=== PATIENT | male | born 1940 | race Caucasian/White ===

== ENCOUNTER 2019-01-13 08:42 | Emergency (ER) | payer OTHER ==
[~2019-01-13] VITALS: Ht 177.8 cm; Wt 97.7 kg
[~2019-01-13 08:42] MED LIST: B12INJ IM; BAYER CHEWABLE81 MG; CARDIZEM CD180 MG; CIPRO500 MG; COUMADIN 5 MG TA5 M1; COUMADIN 5 MG TA5 M1 PO; FLECAINIDE ACE100 MG; FLOMAX0.4 MG; HYDROCODON-ACE1 EAC7; LISINOPRIL5 MG PO; ZETIA10 MG PO
[2019-01-13] MEDS ORDERED: FLECAINIDE ACET50 M1 PO (08:51)
[2019-01-13] MEDS ORDERED: PRAVACHOL40 MG PO (08:52)
[2019-01-13] MEDS ORDERED: FISH OIL 1,001000 M2 PO (08:52)
[2019-01-13 09:16] LABS: ABSOLUTE NEUTROPHILS 3.4 thou/uL (1.4-8.2); BASOPHILS 0.9 % (0.0-2.0); EOSINOPHILS 6.4 % (0.0-3.0); HEMATOCRIT 41.9 % (42.0-52.0); HEMOGLOBIN 13.7 gm/dL (14.0-18.0); MCH 31.2 pg (26.0-34.0); MCHC 32.6 g/dL (28.0-37.0); MCV 95.5 fL (80.0-100.0); MONOCYTES 10.4 % (1.0-8.0); PLATELET COUNT 163 thou/uL (150-400); POLYS 58.3 % (36.0-66.0); RBC 4.39 mil/uL (4.50-6.00); RDW 14.2 % (10.5-14.5); WBC 5.8 thou/uL (4.0-11.0)
[2019-01-13 09:24] LABS: ANION GAP 9 mmol/L (7-16); BUN 18 mg/dL (7-18); CALCIUM 9.9 mg/dL (8.5-10.1); CHLORIDE 106 mmol/L (98-107); CO2 26 mmol/L (21-32); CREATININE 1.2 mg/dL (0.7-1.3); GLUCOSE 94 mg/dL (74-106); POTASSIUM 4.5 mmol/L (3.5-5.1); SODIUM 141 mmol/L (136-145)
[2019-01-13 09:30] LABS: PROTIME 21.1 Seconds (9.3-11.4)
[2019-01-13 09:33] LABS: MAGNESIUM 2.1 mg/dL (1.8-2.4); TROPONIN-I <0.06 ng/mL (<0.06)
[2019-01-13 11:18] VITALS: BP 115/68
--- NOTE | 2019-01-15 13:26 | EKG ---
[address] [place] [employer] [address] ELECTROCARDIOGRAM REPORT Name: KOMAL ARRIAGA SAMARA Room #: DEP Zain#: [id number] Admission: 01/13/19 Attend Phys: Discharge: 01/13/19 Date of : 36 Report #: [id number] THIS REPORT FOR: //name// [facility] ED Test Date: 2019-01-13 Test Time: 09:45:02 Pat Name: KOMAL ARRIAGA Department: Room: Gender: Director Advertising: : 1940 Requested By: Bear Joyce Order Number: [id number] MD: Estuardo Soto Measurements Intervals [place] Rate: 116 P: [place]: QRS: 68 QRSD: 192 T: -41 QT: 418 QTc: 581 Interpretive Statements Atrial fibrillation Right bundle branch block Electronically Signed On 01-15-2019 13:26:35 CDT by Estuardo Soto [email or web address] <ELECTRONICALLY SIGNED> By: Estuardo Soto MD 01/15/19 1326 0945 0945 Estuardo Soto MD /EPI
--- NOTE | 2019-01-15 13:26 | EKG ---
[place] [address] [facility] [place] [address] ELECTROCARDIOGRAM REPORT Name: KOMAL ARRIAGA [facility]: [id number] Admission: 01/13/19 Attend Phys: Discharge: 01/13/19 Date of : 36 Report #: [id number] THIS REPORT FOR: //name// [facility] ED Test Date: 2019-01-13 Test Time: 08:46:33 Pat Name: KOMAL ARRIAGA Department: Room: Gender: Male Insurance Claims Assistant: : 1940 Requested By: Bear Joyce Order Number: [id number] MD: Estuardo Soto Measurements Intervals [place] Rate: 123 P: [place]: QRS: 92 QRSD: 196 T: -56 QT: 443 QTc: 634 Interpretive Statements Atrial flutter with predominant 2:1 AV block RBBB and LPFB Compared to ECG 11/16/2015 11:32:43 Electronically Signed On 01-15-2019 13:25:59 CDT by Estuardo Soto [email or web address] <ELECTRONICALLY SIGNED> By: Estuardo Soto MD 01/15/19 1325 0846 5 Estuardo Soto MD /KATHERYN
--- NOTE | 2019-01-15 13:27 | EKG ---
[address] [place] [address] ELECTROCARDIOGRAM REPORT Name: KOMAL ARRIAGA Room #: DEP Zain#: [id number] Admission: 01/13/19 Attend Phys: Discharge: 01/13/19 Date of : 36 Report #: [id number] THIS REPORT FOR: //name// [facility] ED Test Date: 2019-01-13 Test Time: 10:13:27 Pat Name: KOMAL ARRIAGA Department: Room: Gender: Personnel Training Officer: : 1940 Requested By: Bear Joyce Order Number: [id number] MD: Estuardo Soto Measurements Intervals [place] Rate: 79 P: [place]: QRS: 33 QRSD: 154 T: 6 QT: 465 QTc: 534 Interpretive Statements Atrial flutter Right bundle branch block Compared to ECG 11/16/2015 11:32:43 Atrial fibrillation no longer present Electronically Signed On 01-15-2019 13:26:46 CDT by Estuardo Soto [email or web address] <ELECTRONICALLY SIGNED> By: Estuardo Soto MD 01/15/19 1326 1013 1013 Estuardo Soto MD /KATHERYN
== END 2019-01-13 11:29 | disposition home or self-care (01) ==
LOC: ER 08:42
PROVIDERS: Emergency Medicine
DX: I48.91 Unspecified atrial fibrillation (principal); Z95.2 Presence of prosthetic heart valve; Z85.46 Personal history of malignant neoplasm of prostate; Z90.79 Acquired absence of other genital organ(s); Z88.8 Allergy status to other drugs, medicaments and biological substances

== ENCOUNTER 2019-01-18 08:04 | Inpatient (IN) | payer OTHER ==
[2019-01-18] VITALS (8 sets, daily range): BP systolic 68–114; BP diastolic 39–69
[~2019-01-18] VITALS: Ht 188 cm; Wt 99.5 kg
--- NOTE | ~2019-01-18 | H ---
[facility] [place] [address] HISTORY AND PHYSICAL Name: KOMAL ARRIAGA Room #: 208-P ADM IN M.R.#: [id number] Admission: 01/18/19 Attend Phys: Jose Valverde MD Discharge: Date of : 36 Report #: [id number] THIS REPORT FOR: //name// CC: Jose Valverde DATE OF SERVICE: 01/18/2019 CHIEF COMPLAINT: Chest tightness, rapid atrial fibrillation. HISTORY OF PRESENT ILLNESS: The patient awoke about 6:00 this morning with a sensation of chest pressure in his upper mid chest. He rested carefully, because many times that sensation will resolve on its own relatively soon. It did not, so he presented to the hospital where he was found to be in rapid atrial fibrillation with a wide complex tachycardia, rate of 168, with a blood pressure of 68/39. He was treated in the Emergency Room Department and stabilized. Five days ago, he had dizziness and mild central chest pain while walking in the gym. He came to the Emergency Room with atrial fib and rapid ventricular response of 123. As treatment progressed, the rate dropped to 79 and the rhythm was atrial flutter. He was given metoprolol and his symptoms and heart rate was within the normal range, and he was asymptomatic and was discharged. He states he was given a single metoprolol tablet and not a prescription to continue at home. He has a history of paroxysmal atrial fibrillation, managed on flecainide 50 mg twice daily with warfarin. Sick sinus syndrome, sinus bradycardia, chronotropic incompetence. A pacemaker had been recommended, but the preliminary arrangements/insurance approvals had not been completed at the time of his event this morning. Admission is indicated with urgent placement of a pacemaker and followed by medical management of his rapid ventricular response. A stress echocardiogram 12/06/2018 showed a nonischemic EKG tracing, left ventricular ejection fraction was 55-60%. OTHER CARDIAC HISTORY: He had a cardiac catheterization in 1993, followed by another cardiac catheterization 01/04/2008 and both procedures did not show lesions worthy of intervention. Right ankle was broken in 1981. 05/10/2002, Dr. Issa performed a prostatectomy for prostate cancer. He has an iron deficiency anemia for which he takes iron tablets. Serial colonoscopies and EGDs have been negative. He has a documented low vitamin B12 level and until a year ago took B12 injections, but has switched to oral B12 tablets with adequate laboratory response. [address] [address] HISTORY AND PHYSICAL Name: KOMAL ARRIAGA Room #: 208-P [facility] IN [facility]#: [id number] Admission: 01/18/19 Attend Phys: Jose Valverde MD Discharge: Date of : 36 Report #: [id number] Left hip arthroplasty was elective 12/24/2016. He has treated hyperlipidemia and an elevated LPa. CURRENT MEDICATIONS: Warfarin dosage adjusted by Dr. Wade, 81 mg aspirin 2 tablets in the morning, flecainide 50 mg twice daily, ezetimibe 5 mg daily, pravastatin 40 mg daily, 65 mg iron daily, vitamin D 5000 units daily, fish oil, flax oil, 500 mg of slow niacin daily, acetaminophen 500 mg daily, B12 tablets daily and turmeric daily. ALLERGIES: ZOLPIDEM caused confusion. REVIEW OF SYSTEMS: HEENT: Unremarkable, lungs are clear, there is no chest discomfort, no shortness of breath with exertion unless he is having an episode of rapid atrial fib. Abdomen, and musculoskeletal reviews are negative. A small lump on his right lower leg was felt to be a superficial thrombophlebitis and has resolved. FAMILY HISTORY: Heart disease. OBJECTIVE: GENERAL: Shows an 78-year-old male, appearing to feel well in his hospital bed. HEENT: Unremarkable. The oropharynx is normal. NECK: Negative. There are no carotid bruits present. LUNGS: Clear. CARDIOVASCULAR: S1 and S2 are normal. The rhythm is irregularly irregular, and the heart rate is under 100. There are no murmurs or extra sounds. ABDOMEN: Mildly obese, soft and nontender. EXTREMITIES: There is no significant pedal edema present. NEUROLOGIC: Screening neurological examination is intact. ASSESSMENT: 1. Long history of paroxysmal atrial fibrillation with recent "breakthrough" and 2 episodes of rapid ventricular response, the second one from today requiring urgent hospitalization to control. A pacemaker is indicated. 2. Hyperlipidemia, treated with LPa that is also elevated. 3. Two cardiac catheterizations had failed to reveal coronary lesions worthy of intervention. 4. Chronic microhematuria. 5. Chronic iron deficiency anemia -- treated. 6. Low vitamin B12 -- adequately treated. 7. Intentional 20-pound weight loss over this summer as a result of following [employer] along with his . 8. Superficial thrombophlebitis of the right calf -- resolved on exam today. [facility] [address] [place] [address] HISTORY AND PHYSICAL Name: KOMAL ARRIAGA Room #: 208-P ADM IN M.R.#: [id number] Admission: 01/18/19 Attend Phys: Jose Valverde MD Discharge: Date of : 38 Report #: [id number] PLAN: The patient is admitted, his warfarin is being reversed by the EP service. He will undergo placement of a pacemaker in the morning. By: [id number] Jose Valverde MD /nt
[~2019-01-18 08:04] MED LIST changes: +FISH OIL 1,001000 M2 PO; +FLECAINIDE ACET50 M1 PO; +PRAVACHOL40 MG PO
[2019-01-18 08:20] LABS: ABSOLUTE NEUTROPHILS 3.7 thou/uL (1.4-8.2); BASOPHILS 0.6 % (0.0-2.0); EOSINOPHILS 7.7 % (0.0-3.0); HEMATOCRIT 45.6 % (42.0-52.0); LYMPHOCYTES 25.5 % (24.0-44.0); MCH 31.6 pg (26.0-34.0); MCHC 32.9 g/dL (28.0-37.0); MCV 96.2 fL (80.0-100.0); MONOCYTES 7.1 % (1.0-8.0); PLATELET COUNT 170 thou/uL (150-400); POLYS 59.1 % (36.0-66.0); RBC 4.74 mil/uL (4.50-6.00); RDW 14.3 % (10.5-14.5); WBC 6.3 thou/uL (4.0-11.0)
[2019-01-18 08:27] LABS: ANION GAP 12 mmol/L (7-16); BUN 20 mg/dL (7-18); CALCIUM 9.5 mg/dL (8.5-10.1); CHLORIDE 105 mmol/L (98-107); CO2 25 mmol/L (21-32); CREATININE 1.3 mg/dL (0.7-1.3); GLUCOSE 127 mg/dL (74-106); POTASSIUM 4.1 mmol/L (3.5-5.1); SODIUM 142 mmol/L (136-145)
[2019-01-18 08:36] LABS: TROPONIN-I <0.06 ng/mL (<0.06)
[2019-01-18 09:26] LABS: APTT 35.2 Seconds (24.5-32.8); PROTIME 21.2 Seconds (9.3-11.4)
[2019-01-18 15:16] LABS: INR 2.2; PROTIME 22.8 Seconds (9.3-11.4)
[2019-01-19 01:00] VITALS: BP 89/56
--- NOTE | 2019-01-19 02:55 | NUR ---
ASSESSMENT: PT REMAIN ALERT AND ORIENT TIMES FOUR. UP TO BR WITH STEADY GAIT, SBA. DENIES PAIN, SOB, CP AND NAUSEA. BLOOD PRESSURE LOW, NO CARDIZEM BOLUS WAS GIVEN. CARDIZEM GTT INITATED AT 5MG/5ML PER HOUR. GTT DC'D AT 0151 FOR SBP IN THE 80'S. SR, AFIB, AFLUTTER AND SA PER MONITOR. PT NPO AT [place] FOR PACEMAKER PLACEMENT IN THE AM. SLOW PROGRESS TOWARDS DC GOALS,. WILL CONTINUE TO MONITOR.
[2019-01-19 05:09] VITALS: BP 99/59
[2019-01-19 05:27] LABS: INR 1.7; PROTIME 17.2 Seconds (9.3-11.4)
[2019-01-19 05:28] LABS: CALCIUM 8.8 mg/dL (8.5-10.1); CREATININE 1.3 mg/dL (0.7-1.3)
[2019-01-19 05:37] LABS: ABSOLUTE NEUTROPHILS 4.5 thou/uL (1.4-8.2); BASOPHILS 0.6 % (0.0-2.0); EOSINOPHILS 5.6 % (0.0-3.0); HEMATOCRIT 39.2 % (42.0-52.0); LYMPHOCYTES 25.8 % (24.0-44.0); MCH 31.9 pg (26.0-34.0); MCHC 33.3 g/dL (28.0-37.0); MCV 95.7 fL (80.0-100.0); MONOCYTES 8.1 % (1.0-8.0); PLATELET COUNT 160 thou/uL (150-400); POLYS 59.9 % (36.0-66.0); RDW 14.2 % (10.5-14.5); WBC 7.5 thou/uL (4.0-11.0)
[2019-01-19 10:55] VITALS: BP 127/79
--- NOTE | 2019-01-19 14:04 | EKG ---
[address] [address] ELECTROCARDIOGRAM REPORT Name: KOMAL ARRIAGA Room #: 203-P ADM IN M.R.#: [id number] Admission: 01/18/19 Attend Phys: Jose Valverde MD Discharge: Date of : 36 Report #: [id number] THIS REPORT FOR: //name// [facility] ED Test Date: 2019-01-18 Test Time: 08:15:32 Pat Name: KOMAL ARRIAGA Department: Room: 203 Gender: M Health Care Legal Assistant: JLCAYDEN : 1940 Requested By: Janusz Gregg Order Number: [id number] MD: Estuardo Soto Measurements Intervals [place] Rate: 93 P: [place]: QRS: 111 QRSD: 177 T: -24 QT: 443 QTc: 552 Interpretive Statements Atrial flutter with RVR and RBBB Electronically Signed On 01-19-2019 14:04:25 CDT by Estuardo Soto [email or web address] <ELECTRONICALLY SIGNED> By: Estuardo Soto MD 01/19/19 1404 0815 4 MD MEDHAT [place]ckett
--- NOTE | 2019-01-19 14:04 | EKG ---
[place] [address] [facility] [place] [address] ELECTROCARDIOGRAM REPORT Name: KOMAL ARRIAGA Room #: 203-P ADM IN M.R.#: [id number] Admission: 01/18/19 Attend Phys: Jose Valverde MD Discharge: Date of : 36 Report #: [id number] THIS REPORT FOR: //name// [facility] ED Test Date: 2019-01-18 Test Time: 08:06:09 Pat Name: KOMAL ARRIAGA Department: Room: 203 Gender: M Traveling Representative: JUANJO : 1940 Requested By: Janusz Gregg Order Number: [id number] MD: Estuardo Soto Measurements Intervals [place] Rate: 167 P: 0 OR: 63 QRS: 139 QRSD: 113 T: -85 QT: 279 QTc: 466 Interpretive Statements Wide complex tachycardia which is consistent with atrial flutter with RIGHT BUNDLE BRANCH aberration. Electronically Signed On 01-19-2019 14:03:49 CDT by Estuardo Soto [email or web address] <ELECTRONICALLY SIGNED> By: Estuardo Soto MD 01/19/19 1403 0806 5 Estuardo Soto MD /KATHERYN
[2019-01-19 16:30] VITALS: BP 102/71
--- NOTE | 2019-01-19 17:36 | NUR ---
PT TO THE EP LAB THIS AM FOR PACER PLACEMENT. RETURN TO THE UNIT - VSS - INCSION TO L CHEST C/D/I. MARY DIET AND FLUIDS, ASSESSMENT CHARTED - MEDS PER JUN - NO CO'S OF PAIN OR NAUSEA. UP TO THE BATHROOM. ARM REMAINS IN IMMOBILIZER ORDERED. NO CO'S AT THE PRESENT TIME.
[2019-01-19 19:19] VITALS: BP 115/69
--- NOTE | 2019-01-20 00:42 | NUR ---
PATIENTS CARES WAS ASSUMED AT SHIFT CHANGE. PATIENT WAS ASSESSED AND MEDS WERE GIVEN. PATIENT DID REQUEST TO HAVE HIS IV MOVED. HE STATED HIS IV IN HIS HAND WAS HURTING HIS HAND. IT WAS REPLACED WITH AN 22G,PERIPHERAL IV BY THE NIGHT NURSE. ALEXSANDRANE WAS HAPPY WITH THIS CHANGE. HOURLY ROUNDING WAS DONE. THE BED IS IN A LOW AND LOCKED POSITION
[2019-01-20 04:05] VITALS: BP 134/79
[2019-01-20] MEDS ORDERED: COUMADIN 5 MG TA5 M1 PO (08:07)
[2019-01-20] MEDS ORDERED: TAMBOCOR 100 M100 M1 PO (08:07)
[2019-01-20] MEDS ORDERED: METOPROLOL SUCC25 M1 PO (08:07)
[2019-01-20 11:44] VITALS: BP 134/79
--- NOTE | 2019-01-20 12:19 | NUR ---
ASSESSMENT CHARTED - MEDS PER MAR - NO CO'S OF PAIN OR NAUSEA - MARY DIET AND FLUIDS. UP AD GERMAINE IN ROOM - INCISION TO L SHOULDER C/D/I. PT HOME THIS AFTERNOON - INSTRUCTION RE HOME MEDS/ CARE AND FOLLOW UP GIVEN TO PATIENT AND SPOUSE. STATED UNDERSTANDING OF INSTRUCTION GIVEN. IV AND MONITOR REMOVED PRIOR TO D/C. PT LEFT UNIT VIA WHEELCHAIR - HOME VIA PVT VEHICLE ACCOMAPNIED BY - NO CO'S AT TIME OD D/C.
--- NOTE | 2019-01-26 15:55 | P ---
[facility] [place] [place] [address] PROCEDURE REPORT Name: KOMAL ARRIAGA Room #: 203-P [facility] IN M.R.#: [id number] Admission: 01/18/19 Attend Phys: Jose Valverde MD Discharge: 01/20/19 Date of : 36 Report #: [id number] THIS REPORT FOR: //name// CC: Jose Valverde PACEMAKER IMPLANTATION PREOPERATIVE DIAGNOSES: 1. Atrial fibrillation. 2. Sick sinus syndrome. 3. Symptomatic bradycardia. 4. Tachycardia-bradycardia syndrome. HISTORY: The patient is an 78-year-old male with a history of recurrent atrial fibrillation as well as symptomatic sinus bradycardia. He presented to the Emergency Room with atrial fibrillation with rapid ventricular response. He had given himself additional doses of flecainide and when he presented, he had placed himself into a rapid atrial flutter with aberration. He was admitted to the hospital for rate control. He is here for dual chamber pacemaker implantation given his history of symptomatic sinus bradycardia and the need to up titrate his antiarrhythmic drugs and start him on rate control medications. ANESTHESIA: The patient underwent MAC anesthesia with no anesthesia-related complications. DESCRIPTION OF PROCEDURE: The patient underwent informed consent. We discussed the details of the procedure including the risks, which include, but not limited to bleeding, infection, vascular damage, cardiac perforation, pneumothorax. He understood these risks and is willing to proceed. The patient was brought to the EP laboratory in a fasting and unsedated state and prepped and draped in a sterile fashion. He received IV antibiotics for antibiotic prophylaxis. Next, a venogram was performed showing patency of the left axillary vein. I injected lidocaine at the incision site. Incision was made and a pocket was created over the prepectoral fascia and access was obtained twice to left axillary vein using the extrathoracic approach. Sheaths were positioned using the modified Seldinger technique. Next, under fluoroscopy, a lead was positioned into the right ventricular apex with adequate pacing and sensing thresholds. Next, I attempted to place an atrial lead into the right atrial appendage, but there was something wrong with the screwing mechanism of this lead. It would not deploy appropriately nor would it retract appropriately. This lead was a [employer] model #2088TC, 52 cm, serial#[id number]. Next, a new lead was positioned to the right atrial appendage. Actually, this lead dislodged twice as well. I therefore went for a more lateral lead position and this lead was tested and found to be in a stable position. As such, the leads were sutured to the prepectoral fascia. The device was connected, tested and found to be functioning normally. The device was placed in the pocket. Pocket was irrigated with vancomycin. The pocket was closed in 2 layers using 2-[address] [address] PROCEDURE REPORT Name: KOMAL ARRIAGA SAMARA Room #: 203-P [facility] IN M.R.#: [id number] Admission: 01/18/19 Attend Phys: Jose Valverde MD Discharge: 01/20/19 Date of : 36 Report #: [id number] deep layer and 3-0 for the mid layer and surgical glue for the outer layer. The patient awoke neurologically and hemodynamically intact. No complications and no significant bleeding. The implanted pacemaker was a [employer] model #2272, serial #[id number]. The atrial lead was a [employer] model #2088TC, 52 cm, serial #[id number] and the RV lead was a [employer] model #2088TC, 58 cm, serial #[id number]. The atrial lead demonstrated P-wave of 1.9 millivolts, pacing impedance of 530 ohms and pacing threshold 0.5 volts at 0.4 milliseconds. The RV lead demonstrated R-wave of 6.4 millivolts, pacing impedance of 560 ohms and the pacing threshold of 1 volt at 0.4 milliseconds. The device was programmed to the DDDR 60-130 mode. CONCLUSIONS: 1. Successful dual-chamber pacemaker implantation. 2. Satisfactory atrial and ventricular pacing and sensing thresholds. RECOMMENDATIONS: We will increase flecainide to 100 b.i.d. and start Toprol. We will resume the patient's warfarin therapy. <ELECTRONICALLY SIGNED> By: Estuardo Soto MD 01/26/19 1555 0928 0050 Estuardo Soto MD /nt
== END 2019-01-20 12:15 | disposition home or self-care (01) | DRG 244 ==
LOC: ER 08:04 → 2N 13:31 → EROBS 13:31 → 2N 17:28 → ENTRNSPT 01-20 12:08 → EDTRNSPTSTS 01-20 12:10 → 2N 01-20 12:15
PROVIDERS: Emergency Medicine; Nurse Practitioner; ADMIT Internal Medicine
PROC: B51N1ZZ Fluoroscopy of Left Upper Extremity Veins using Low Osmolar Contrast (ICD-10-PCS; principal; 2019-01-18)
PROC: 02H63JZ Insertion of Pacemaker Lead into Right Atrium, Percutaneous Approach (ICD-10-PCS; principal; 2019-01-18)
PROC: 02HK3JZ Insertion of Pacemaker Lead into Right Ventricle, Percutaneous Approach (ICD-10-PCS; principal; 2019-01-18)
PROC: 0JH606Z Insertion of Pacemaker, Dual Chamber into Chest Subcutaneous Tissue and Fascia, Open Approach (ICD-10-PCS; principal; 2019-01-18)
DX: I49.5 Sick sinus syndrome (principal); E78.5 Hyperlipidemia, unspecified; N18.9 Chronic kidney disease, unspecified; I48.0 Paroxysmal atrial fibrillation; I45.10 Unspecified right bundle-branch block; I80.9 Phlebitis and thrombophlebitis of unspecified site; R31.9 Hematuria, unspecified; I12.9 Hypertensive chronic kidney disease with stage 1 through stage 4 chronic kidney disease, or unspecified chronic kidney disease; D50.9 Iron deficiency anemia, unspecified; Z79.01 Long term (current) use of anticoagulants; Z88.8 Allergy status to other drugs, medicaments and biological substances; Z79.899 Other long term (current) drug therapy
CPT/HCPCS: 10081; 62110; 62900; 70005

== ENCOUNTER → 2019-04-27 | Outpatient (CLI) | payer OTHER ==
[~2019-04-27] MED LIST changes: +METOPROLOL SUCC25 M1 PO; +TAMBOCOR 100 M100 M1 PO
== END ==
LOC: SJCVC 08:33
DX: Z51.81 Encounter for therapeutic drug level monitoring (principal); I10 Essential (primary) hypertension; I48.0 Paroxysmal atrial fibrillation; E78.5 Hyperlipidemia, unspecified; Z79.01 Long term (current) use of anticoagulants

== ENCOUNTER → 2019-05-13 | Outpatient (CLI) | payer OTHER | LOC: SJCVC 10:56 | DX: Z45.018 Encounter for adjustment and management of other part of cardiac pacemaker (principal); I48.0 Paroxysmal atrial fibrillation; I45.10 Unspecified right bundle-branch block; R94.31 Abnormal electrocardiogram [ECG] [EKG]; I48.92 Unspecified atrial flutter; E78.5 Hyperlipidemia, unspecified; E78.00 Pure hypercholesterolemia, unspecified; Z87.891 Personal history of nicotine dependence; Z79.82 Long term (current) use of aspirin; Z79.899 Other long term (current) drug therapy; Z92.29 Personal history of other drug therapy ==

== ENCOUNTER → 2019-05-25 | Outpatient (CLI) | payer OTHER | LOC: SJCVC 08:08 | DX: Z51.81 Encounter for therapeutic drug level monitoring (principal); I48.91 Unspecified atrial fibrillation; E78.5 Hyperlipidemia, unspecified; I10 Essential (primary) hypertension; Z79.01 Long term (current) use of anticoagulants; Z95.0 Presence of cardiac pacemaker ==

== ENCOUNTER → 2019-06-01 | Outpatient (CLI) | payer OTHER | LOC: SJCVC 08:01 | DX: Z51.81 Encounter for therapeutic drug level monitoring (principal); I48.91 Unspecified atrial fibrillation; I10 Essential (primary) hypertension; E78.5 Hyperlipidemia, unspecified; Z79.01 Long term (current) use of anticoagulants; Z95.0 Presence of cardiac pacemaker ==

== ENCOUNTER → 2019-06-15 | Outpatient (CLI) | payer OTHER | LOC: SJCVC 11:17 | DX: Z51.81 Encounter for therapeutic drug level monitoring (principal); I48.91 Unspecified atrial fibrillation; I10 Essential (primary) hypertension; E78.5 Hyperlipidemia, unspecified; Z79.01 Long term (current) use of anticoagulants; Z95.0 Presence of cardiac pacemaker ==

== ENCOUNTER → 2019-07-12 | Outpatient (CLI) | payer OTHER | LOC: SJCVC 14:20 | DX: Z51.81 Encounter for therapeutic drug level monitoring (principal); I48.0 Paroxysmal atrial fibrillation; I10 Essential (primary) hypertension; E78.5 Hyperlipidemia, unspecified; Z79.01 Long term (current) use of anticoagulants ==

== ENCOUNTER → 2019-08-16 | Outpatient (CLI) | payer OTHER | LOC: SJCVC 10:17 | DX: Z51.81 Encounter for therapeutic drug level monitoring (principal); I48.0 Paroxysmal atrial fibrillation; I10 Essential (primary) hypertension; E78.5 Hyperlipidemia, unspecified; Z79.01 Long term (current) use of anticoagulants; Z79.899 Other long term (current) drug therapy ==

== ENCOUNTER → 2019-09-15 | Outpatient (CLI) | payer OTHER | LOC: SJCVC 08:19 | DX: Z51.81 Encounter for therapeutic drug level monitoring (principal); Z79.01 Long term (current) use of anticoagulants ==

== ENCOUNTER → 2019-10-15 | Outpatient (CLI) | payer OTHER | LOC: SJCVC 08:08 | PROVIDERS: ATTEND Internal Medicine | DX: Z51.81 Encounter for therapeutic drug level monitoring (principal); I48.0 Paroxysmal atrial fibrillation; I10 Essential (primary) hypertension; E78.5 Hyperlipidemia, unspecified; Z79.01 Long term (current) use of anticoagulants ==

== ENCOUNTER → 2019-11-11 | Outpatient (CLI) | payer OTHER | LOC: SJCVC 10:26 | PROVIDERS: ATTEND Internal Medicine | DX: R94.31 Abnormal electrocardiogram [ECG] [EKG] (principal); I45.10 Unspecified right bundle-branch block; I48.0 Paroxysmal atrial fibrillation; E78.5 Hyperlipidemia, unspecified; I10 Essential (primary) hypertension; Z79.899 Other long term (current) drug therapy; Z87.891 Personal history of nicotine dependence; Z92.29 Personal history of other drug therapy ==

== ENCOUNTER → 2019-11-18 | Outpatient (CLI) | payer OTHER | LOC: SJCVC 15:40 | PROVIDERS: ATTEND Internal Medicine | DX: Z51.81 Encounter for therapeutic drug level monitoring (principal); I48.0 Paroxysmal atrial fibrillation; I10 Essential (primary) hypertension; Z95.0 Presence of cardiac pacemaker; Z79.01 Long term (current) use of anticoagulants ==

== ENCOUNTER → 2019-12-03 | Outpatient (CLI) | payer OTHER | LOC: SJCVC 13:52 | PROVIDERS: ATTEND Internal Medicine | DX: Z51.81 Encounter for therapeutic drug level monitoring (principal); I48.0 Paroxysmal atrial fibrillation; I10 Essential (primary) hypertension; E78.5 Hyperlipidemia, unspecified; Z79.01 Long term (current) use of anticoagulants; Z79.899 Other long term (current) drug therapy ==

== ENCOUNTER → 2019-12-17 | Outpatient (CLI) | payer OTHER | LOC: SJCVC 13:28 | PROVIDERS: ATTEND Internal Medicine | DX: Z51.81 Encounter for therapeutic drug level monitoring (principal); I48.0 Paroxysmal atrial fibrillation; I10 Essential (primary) hypertension; E78.5 Hyperlipidemia, unspecified; Z95.0 Presence of cardiac pacemaker; Z79.01 Long term (current) use of anticoagulants; Z79.899 Other long term (current) drug therapy ==

== ENCOUNTER → 2020-01-17 | Outpatient (CLI) | payer OTHER | LOC: SJCVC 07:57 | PROVIDERS: ATTEND Internal Medicine | DX: Z51.81 Encounter for therapeutic drug level monitoring (principal); Z79.01 Long term (current) use of anticoagulants; I48.91 Unspecified atrial fibrillation; I10 Essential (primary) hypertension; I48.0 Paroxysmal atrial fibrillation; I45.10 Unspecified right bundle-branch block ==

== ENCOUNTER → 2020-02-24 | Outpatient (CLI) | payer OTHER | LOC: SJCVC 14:01 | PROVIDERS: ATTEND Internal Medicine | DX: Z51.81 Encounter for therapeutic drug level monitoring (principal); I48.0 Paroxysmal atrial fibrillation; I10 Essential (primary) hypertension; E78.5 Hyperlipidemia, unspecified; Z95.0 Presence of cardiac pacemaker; Z79.01 Long term (current) use of anticoagulants; Z79.899 Other long term (current) drug therapy ==

== ENCOUNTER → 2020-04-12 | Outpatient (CLI) | payer OTHER | LOC: SJCVC 08:42 | PROVIDERS: ATTEND Internal Medicine | DX: Z51.81 Encounter for therapeutic drug level monitoring (principal); I48.0 Paroxysmal atrial fibrillation; I10 Essential (primary) hypertension; E78.5 Hyperlipidemia, unspecified; Z79.01 Long term (current) use of anticoagulants ==

== ENCOUNTER → 2020-05-11 | Outpatient (CLI) | payer OTHER | LOC: SJCVC 10:40 | PROVIDERS: ATTEND Internal Medicine | DX: I45.10 Unspecified right bundle-branch block (principal); R94.31 Abnormal electrocardiogram [ECG] [EKG]; I48.0 Paroxysmal atrial fibrillation; E78.5 Hyperlipidemia, unspecified; I10 Essential (primary) hypertension; E78.00 Pure hypercholesterolemia, unspecified; Z92.29 Personal history of other drug therapy; Z95.0 Presence of cardiac pacemaker; Z96.642 Presence of left artificial hip joint; Z82.49 Family history of ischemic heart disease and other diseases of the circulatory system; Z87.891 Personal history of nicotine dependence; Z79.82 Long term (current) use of aspirin; Z79.899 Other long term (current) drug therapy; Z79.01 Long term (current) use of anticoagulants ==

== ENCOUNTER → 2020-06-12 | Outpatient (CLI) | payer OTHER | LOC: SJCVC 11:07 | PROVIDERS: ATTEND Internal Medicine | DX: Z51.81 Encounter for therapeutic drug level monitoring (principal); I48.91 Unspecified atrial fibrillation; I10 Essential (primary) hypertension; I48.0 Paroxysmal atrial fibrillation; E78.5 Hyperlipidemia, unspecified; Z95.0 Presence of cardiac pacemaker; Z88.8 Allergy status to other drugs, medicaments and biological substances; Z79.01 Long term (current) use of anticoagulants ==

== ENCOUNTER → 2020-08-09 | Outpatient (CLI) | payer OTHER | LOC: SJCVC 08:02 | PROVIDERS: ATTEND Internal Medicine | DX: Z51.81 Encounter for therapeutic drug level monitoring (principal); I10 Essential (primary) hypertension; E78.00 Pure hypercholesterolemia, unspecified; Z79.01 Long term (current) use of anticoagulants; Z79.899 Other long term (current) drug therapy; Z88.8 Allergy status to other drugs, medicaments and biological substances; Z87.891 Personal history of nicotine dependence ==

== ENCOUNTER → 2020-09-06 | Outpatient (CLI) | payer OTHER | LOC: SJCVC 07:56 | PROVIDERS: ATTEND Internal Medicine | DX: Z51.81 Encounter for therapeutic drug level monitoring (principal); I48.0 Paroxysmal atrial fibrillation; I10 Essential (primary) hypertension; I45.10 Unspecified right bundle-branch block; E78.5 Hyperlipidemia, unspecified; Z95.0 Presence of cardiac pacemaker; Z79.01 Long term (current) use of anticoagulants ==

== ENCOUNTER → 2020-11-01 | Outpatient (CLI) | payer OTHER | LOC: SJCVC 09:34 | PROVIDERS: ATTEND Internal Medicine | DX: Z51.81 Encounter for therapeutic drug level monitoring (principal); I48.0 Paroxysmal atrial fibrillation; I10 Essential (primary) hypertension; E78.5 Hyperlipidemia, unspecified; Z95.0 Presence of cardiac pacemaker; Z79.82 Long term (current) use of aspirin; Z79.01 Long term (current) use of anticoagulants; Z79.899 Other long term (current) drug therapy ==

== ENCOUNTER → 2020-11-08 | Outpatient (CLI) | payer OTHER | LOC: SJCVC 14:49 | PROVIDERS: ATTEND Internal Medicine | DX: R94.31 Abnormal electrocardiogram [ECG] [EKG] (principal); I45.10 Unspecified right bundle-branch block; I48.0 Paroxysmal atrial fibrillation; E78.5 Hyperlipidemia, unspecified; I10 Essential (primary) hypertension; E78.00 Pure hypercholesterolemia, unspecified; Z90.49 Acquired absence of other specified parts of digestive tract; Z95.0 Presence of cardiac pacemaker; Z88.8 Allergy status to other drugs, medicaments and biological substances; Z79.82 Long term (current) use of aspirin; Z79.01 Long term (current) use of anticoagulants; Z79.899 Other long term (current) drug therapy; Z92.29 Personal history of other drug therapy; Z87.891 Personal history of nicotine dependence; Z82.49 Family history of ischemic heart disease and other diseases of the circulatory system ==

== ENCOUNTER → 2020-11-15 | Outpatient (CLI) | payer OTHER | LOC: SJCVC 08:13 | PROVIDERS: ATTEND Internal Medicine | DX: Z51.81 Encounter for therapeutic drug level monitoring (principal); I48.0 Paroxysmal atrial fibrillation; I10 Essential (primary) hypertension; E78.5 Hyperlipidemia, unspecified; Z95.0 Presence of cardiac pacemaker; Z79.82 Long term (current) use of aspirin; Z79.01 Long term (current) use of anticoagulants; Z79.899 Other long term (current) drug therapy ==

== ENCOUNTER → 2020-11-29 | Outpatient (CLI) | payer OTHER | LOC: SJCVC 08:02 | PROVIDERS: ATTEND Internal Medicine | DX: Z51.81 Encounter for therapeutic drug level monitoring (principal); I48.0 Paroxysmal atrial fibrillation; I10 Essential (primary) hypertension; E78.5 Hyperlipidemia, unspecified; Z79.01 Long term (current) use of anticoagulants; Z79.82 Long term (current) use of aspirin; Z79.899 Other long term (current) drug therapy ==

== ENCOUNTER → 2020-12-13 | Outpatient (CLI) | payer OTHER | LOC: SJCVC 08:45 | PROVIDERS: ATTEND Internal Medicine | DX: Z51.81 Encounter for therapeutic drug level monitoring (principal); E78.00 Pure hypercholesterolemia, unspecified; I10 Essential (primary) hypertension; Z79.01 Long term (current) use of anticoagulants; Z79.899 Other long term (current) drug therapy; Z79.82 Long term (current) use of aspirin; Z88.8 Allergy status to other drugs, medicaments and biological substances ==

== ENCOUNTER → 2021-01-03 | Outpatient (CLI) | payer OTHER | LOC: SJCVC 08:05 | PROVIDERS: ATTEND Internal Medicine | DX: Z51.81 Encounter for therapeutic drug level monitoring (principal); E78.00 Pure hypercholesterolemia, unspecified; I10 Essential (primary) hypertension; Z79.01 Long term (current) use of anticoagulants; Z79.82 Long term (current) use of aspirin; Z88.8 Allergy status to other drugs, medicaments and biological substances; Z87.891 Personal history of nicotine dependence ==

== ENCOUNTER → 2021-01-17 | Outpatient (CLI) | payer OTHER | LOC: SJCVC 08:10 | PROVIDERS: ATTEND Internal Medicine | DX: Z51.81 Encounter for therapeutic drug level monitoring (principal); E78.00 Pure hypercholesterolemia, unspecified; I10 Essential (primary) hypertension; Z79.01 Long term (current) use of anticoagulants; Z79.82 Long term (current) use of aspirin; Z79.899 Other long term (current) drug therapy; Z88.8 Allergy status to other drugs, medicaments and biological substances; Z87.891 Personal history of nicotine dependence ==

== ENCOUNTER → 2021-01-26 | Outpatient (CLI) | payer OTHER | LOC: SJCVC 09:48 | PROVIDERS: ATTEND Internal Medicine | DX: Z51.81 Encounter for therapeutic drug level monitoring (principal); I10 Essential (primary) hypertension; I48.0 Paroxysmal atrial fibrillation; E78.5 Hyperlipidemia, unspecified; Z79.01 Long term (current) use of anticoagulants ==

== ENCOUNTER → 2021-02-06 | Outpatient (CLI) | payer OTHER | LOC: SJCVC 08:28 | PROVIDERS: ATTEND Internal Medicine | DX: Z51.81 Encounter for therapeutic drug level monitoring (principal); Z79.01 Long term (current) use of anticoagulants ==

== ENCOUNTER → 2021-02-20 | Outpatient (CLI) | payer OTHER | END | disposition home or self-care (01) | LOC: SJCVC 08:18 | PROVIDERS: ATTEND Internal Medicine | DX: Z51.81 Encounter for therapeutic drug level monitoring (principal); Z79.01 Long term (current) use of anticoagulants ==

== ENCOUNTER → 2021-03-20 | Outpatient (CLI) | payer OTHER | LOC: SJCVC 08:24 | PROVIDERS: ATTEND Internal Medicine | DX: Z51.81 Encounter for therapeutic drug level monitoring (principal); Z79.01 Long term (current) use of anticoagulants; Z79.82 Long term (current) use of aspirin; Z79.899 Other long term (current) drug therapy; I48.0 Paroxysmal atrial fibrillation; I10 Essential (primary) hypertension; E78.5 Hyperlipidemia, unspecified; I45.10 Unspecified right bundle-branch block; Z95.0 Presence of cardiac pacemaker; Z92.29 Personal history of other drug therapy; E78.00 Pure hypercholesterolemia, unspecified; D64.9 Anemia, unspecified; C61 Malignant neoplasm of prostate; Z90.49 Acquired absence of other specified parts of digestive tract; Z98.890 Other specified postprocedural states; Z88.8 Allergy status to other drugs, medicaments and biological substances; Z87.891 Personal history of nicotine dependence ==

== ENCOUNTER → 2021-04-26 | Outpatient (CLI) | payer OTHER | LOC: SJCVC 08:25 | PROVIDERS: ATTEND Internal Medicine | DX: Z51.81 Encounter for therapeutic drug level monitoring (principal); E78.00 Pure hypercholesterolemia, unspecified; I10 Essential (primary) hypertension; Z79.01 Long term (current) use of anticoagulants; Z79.82 Long term (current) use of aspirin; Z88.8 Allergy status to other drugs, medicaments and biological substances; Z87.891 Personal history of nicotine dependence; Z82.49 Family history of ischemic heart disease and other diseases of the circulatory system ==

== ENCOUNTER → 2021-05-17 | Outpatient (CLI) | payer OTHER | LOC: SJCVC 14:11 | PROVIDERS: ATTEND Internal Medicine | DX: I48.0 Paroxysmal atrial fibrillation (principal); E78.5 Hyperlipidemia, unspecified; I10 Essential (primary) hypertension; I45.10 Unspecified right bundle-branch block; Z92.29 Personal history of other drug therapy; Z95.0 Presence of cardiac pacemaker ==

== ENCOUNTER → 2021-05-24 | Outpatient (CLI) | payer OTHER | LOC: SJCVC 08:59 | PROVIDERS: ATTEND Internal Medicine | DX: Z51.81 Encounter for therapeutic drug level monitoring (principal); Z79.01 Long term (current) use of anticoagulants ==